=== PATIENT | female | born 1955 | race Caucasian/White ===

== ENCOUNTER 2020-11-27 11:30 | Observation (INO) | payer MEDICARE, OTHER ==
[~2020-11-27] VITALS: Ht 167.6 cm; Wt 62.1 kg
[2020-11-27] MEDS ORDERED: METO25TA35 PO (11:38)
[2020-11-27] MEDS ORDERED: FAMO-79 PO (11:38)
[2020-11-27] MEDS ORDERED: MIRT-14 PO (11:38)
[2020-11-27] MEDS ORDERED: LISI2.5T PO (11:38)
[2020-11-27] MEDS ORDERED: ISOS30TA8 PO (11:38)
[2020-11-27] MEDS ORDERED: ATOR40TA78 PO (11:38)
[2020-11-27] MEDS ORDERED: ASPI81TA45 PO (11:38)
[2020-11-27 12:16] LABS: BASOPHILS % (AUTO) 1 % (0-1); EOSINOPHILS % (AUTO) 2 % (1-7); LYMPHOCYTES % (AUTO) 31 % (22-44); MEAN CORPUSCULAR HEMOGLOBIN 31.3 pg (27.0-34.8); MEAN CORPUSCULAR HGB CONC 33.8 g/dL (32.4-35.8); MEAN PLATELET VOLUME 9.3 fL (7.4-10.4); MONOCYTES % (AUTO) 11 % (2-9); NEUTROPHILS % (AUTO) 56 % (42-75); PLATELET COUNT 182 x10^3/uL (130-400); RED BLOOD COUNT 5.04 x10^6/uL (3.82-5.3); RED CELL DISTRIBUTION WIDTH 13.4 % (9.6-15.2)
[2020-11-27 12:28] LABS: ALANINE AMINOTRANSFERASE 18 U/L (12-78); ALBUMIN 3.9 g/dL (3.4-5.0); ANION GAP 3 mmol/L (5-15); CALCIUM 9.4 mg/dL (8.5-10.1); CHLORIDE 107 mmol/L (98-107); CREATININE 0.83 mg/dL (0.55-1.02)
[2020-11-27 12:31] LABS: ALKALINE PHOSPHATASE 87 U/L (45-117); BILIRUBIN,TOTAL 0.5 mg/dL (0.2-1.0); TOTAL PROTEIN 7.1 g/dL (6.4-8.2)
[2020-11-28] MEDS ORDERED: CHLORHEXIDINE 15 ML UDC ONE (07:15)
[2020-11-28] MEDS ORDERED: LACTATED RINGERS 1,000 ML IV SCH (07:30)
[2020-11-28] MEDS ORDERED: CHLORHEXIDINE 15 ML UDC PO ONE (07:30)
[2020-11-28] MEDS ORDERED: LIDOCAINE/PF 1%, 30ML ONE (07:52)
[2020-11-28] MEDS ORDERED: HEPARIN 1,000 UNITS/ML, 30ML ONE (07:52)
[2020-11-28] MEDS ORDERED: PROTAMINE SULFATE 10 MG/ML, 5ML ONE (07:52)
[2020-11-28] MEDS ORDERED: THROMBIN 20,000 UNIT VIAL TP ONE (07:52)
[2020-11-28] MEDS ORDERED: EPINEPHRINE 1 MG/ML, 1ML ONE (07:53)
[2020-11-28] MEDS ORDERED: BACITRACIN 50,000 UNIT ONE (07:53)
[2020-11-28] MEDS ORDERED: FENTANYL PF 250 MCG/5ML ONE (08:29)
[2020-11-28] MEDS ORDERED: SUGAMMADEX 200 MG/2 ML IVPush ONE (08:32)
[2020-11-28] MEDS ORDERED: ROCURONIUM 10 MG/ML,10ML ONE (08:32)
[2020-11-28] MEDS ORDERED: PROPOFOL 10 MG/ML, 20ML ONE (08:32)
[2020-11-28] MEDS ORDERED: HYDR-3237 PO (08:51)
[2020-11-28] MEDS ORDERED: ONDANSETRON ODT 4 MG PO PRN (10:30)
[2020-11-28] MEDS ORDERED: hydrALAzine 20 MG/ML, 1ML IVPush PRN (10:30)
[2020-11-28] MEDS ORDERED: ACETAMINOPHEN 325 MG TABLET PO PRN (10:30)
[2020-11-28] MEDS ORDERED: BUTALB/APAP/CAFFEINE 50MG/325MG/40MG PO PRN ×2 (10:30)
[2020-11-28] MEDS ORDERED: GUAIFENESIN/DM 200-20MG, 10ML UDC PO PRN (10:30)
[2020-11-28] MEDS ORDERED: ONDANSETRON 2MG/ML, 2ML IVPush PRN (10:30)
[2020-11-28] MEDS ORDERED: BACLOFEN 10 MG TABLET PO PRN (10:30)
[2020-11-28] MEDS ORDERED: ENALAPRILAT 1.25 MG/ML, 2ML IVPush PRN (10:30)
[2020-11-28] MEDS ORDERED: OXYcodone IR 5MG TABLET PO PRN (10:30)
[2020-11-28 10:44] LABS: TROPONIN I < 0.015 ng/mL (0.000-0.045)
[2020-11-28 12:23] VITALS: BP 111/65
[2020-11-28 13:19] LABS: TROPONIN I < 0.015 ng/mL (0.000-0.045)
[2020-11-28] MEDS: NICOTINE 21 MG/24 HR PATCH.TD24 TD SCH (14:48)
[2020-11-28 17:23] LABS: TROPONIN I < 0.015 ng/mL (0.000-0.045)
[2020-11-28 20:09] VITALS: BP 134/68
[2020-11-28] MEDS ORDERED: MELATONIN 5 MG TABLET PO SCH (21:00)
[2020-11-28] MEDS: FAMOTIDINE 20 MG TABLET PO SCH (22:38)
[2020-11-29 00:47] VITALS: BP 124/62
[2020-11-29 04:52] LABS: BASOPHILS % (AUTO) 0 % (0-1); EOSINOPHILS % (AUTO) 0 % (1-7); LYMPHOCYTES % (AUTO) 18 % (22-44); MEAN CORPUSCULAR HEMOGLOBIN 31.3 pg (27.0-34.8); MEAN CORPUSCULAR HGB CONC 33.8 g/dL (32.4-35.8); MEAN PLATELET VOLUME 9.8 fL (7.4-10.4); MONOCYTES % (AUTO) 9 % (2-9); NEUTROPHILS % (AUTO) 72 % (42-75); PLATELET COUNT 155 x10^3/uL (130-400); RED BLOOD COUNT 4.51 x10^6/uL (3.82-5.3); RED CELL DISTRIBUTION WIDTH 13.5 % (9.6-15.2)
[2020-11-29 07:23] VITALS: BP 85/51
[2020-11-29] MEDS: FAMOTIDINE 20 MG TABLET PO SCH (07:41)
[2020-11-29] MEDS ORDERED: SENNA/DOCUSATE TABLET PO SCH (09:00)
[2020-11-29] MEDS ORDERED: REGADENOSON 0.4 MG/5 ML SYRINGE ONE (09:11)
[2020-11-29 13:34] VITALS: BP 101/57
[2020-11-29] MEDS: NICOTINE 21 MG/24 HR PATCH.TD24 TD SCH (14:43)
== END 2020-11-29 15:57 | disposition home or self-care (01) ==
LOC: INTOOBSV 11-28 06:37 → OBSVTOIN 11-28 06:37 → ORIP 11-28 06:37 → EDSTATUS 11-28 08:30 → 4WST 11-28 12:03
PROVIDERS: ADMIT Family Medicine; ATTEND Family Medicine
DX: I95.2 Hypotension due to drugs (principal); Z20.822 Contact with and (suspected) exposure to COVID-19; I77.9 Disorder of arteries and arterioles, unspecified; I73.9 Peripheral vascular disease, unspecified; I25.10 Atherosclerotic heart disease of native coronary artery without angina pectoris; I22.8 Subsequent ST elevation (STEMI) myocardial infarction of other sites; I50.9 Heart failure, unspecified; I25.2 Old myocardial infarction; F17.200 Nicotine dependence, unspecified, uncomplicated; T41.45XA Adverse effect of unspecified anesthetic, initial encounter; Z79.82 Long term (current) use of aspirin; Z79.899 Other long term (current) drug therapy; Z71.6 Tobacco abuse counseling
CPT/HCPCS: 35875; 36415; 37226; 71045; 78452; 80053; 83735; 84484; 85025; 86850; 86900; 93005; 93017; 97161; A9502; G0378; J2704; J2785; J3010; J7120; U0003; U0005; J0171; J1644; J2720

== ENCOUNTER 2021-03-10 09:09 | Outpatient (CLI) | payer MEDICARE ==
[~2021-03-10 09:09] MED LIST: ASPI81TA45 PO; ATOR40TA78 PO; FAMO-79 PO; HYDR-3237 PO; ISOS30TA8 PO; LISI2.5T12 PO; METO25TA35 PO; MIRT-14 PO
[2021-03-10] MEDS ORDERED: METO25TA35 PO (10:34)
[2021-03-10 10:43] LABS: BASOPHILS % (AUTO) 1 % (0-1); EOSINOPHILS % (AUTO) 2 % (1-7); LYMPHOCYTES % (AUTO) 29 % (22-44); MEAN CORPUSCULAR HEMOGLOBIN 31.1 pg (27.0-34.8); MEAN CORPUSCULAR HGB CONC 33.3 g/dL (32.4-35.8); MEAN PLATELET VOLUME 10.2 fL (7.4-10.4); MONOCYTES % (AUTO) 12 % (2-9); NEUTROPHILS % (AUTO) 56 % (42-75); PLATELET COUNT 169 x10^3/uL (130-400); RED BLOOD COUNT 5.14 x10^6/uL (3.82-5.3); RED CELL DISTRIBUTION WIDTH 13.9 % (9.6-15.2)
[2021-03-10 10:57] LABS: ALBUMIN 3.6 g/dL (3.4-5.0); ANION GAP 6 mmol/L (5-15); CALCIUM 8.9 mg/dL (8.5-10.1); CHLORIDE 107 mmol/L (98-107)
[2021-03-10 11:01] LABS: ALANINE AMINOTRANSFERASE 22 U/L (12-78); ALKALINE PHOSPHATASE 113 U/L (45-117); BILIRUBIN,TOTAL 0.3 mg/dL (0.2-1.0); CREATININE 0.78 mg/dL (0.55-1.02); TOTAL PROTEIN 7.3 g/dL (6.4-8.2)
[2021-03-16] MEDS ORDERED: ISOS30TA8 PO (07:07)
[2021-03-18] MEDS ORDERED: HYDR-2214 PO (07:41)
[2021-03-18] MEDS ORDERED: NICO-485 TD (10:27)
[2021-03-18] MEDS ORDERED: NICO-486 TD (10:27)
[2021-03-18] MEDS ORDERED: BUPR-173 PO (10:28)
== END 2021-03-10 23:59 | disposition home or self-care (01) ==
LOC: STAR 09:09
PROVIDERS: ATTEND Surgery
DX: Z01.818 Encounter for other preprocedural examination (principal); Z20.822 Contact with and (suspected) exposure to COVID-19
CPT/HCPCS: 80053; 85025; 87635; 93005